=== PATIENT | male | born 1960 | race Caucasian/White ===

== ENCOUNTER 2020-11-10 15:19 | Emergency (ER) | payer BC, OTHER ==
[~2020-11-10] VITALS: Ht 177.8 cm; Wt 77.1 kg
[~2020-11-10 15:19] MED LIST: IBUPROFEN 600600 M1 PO; NOHOMEMEDICATIONS
[2020-11-10 15:59] LABS: CALCIUM 8.8 mg/dL (8.5-10.1); CREATININE 0.9 mg/dL (0.7-1.3); POTASSIUM 4.5 mmol/L (3.5-5.1)
[2020-11-10 16:05] LABS: ALBUMIN 3.7 g/dL (3.4-5.0); TOTAL BILIRUBIN 0.9 mg/dL (0.2-1.0); TOTAL PROTEIN 7.6 g/dL (6.4-8.2)
[2020-11-10 16:41] LABS: ABSOLUTE NEUTROPHILS 2.2 thou/uL (1.4-8.2); BASOPHILS 1.7 % (0.0-2.0); HEMATOCRIT 36.7 % (42.0-52.0); HEMOGLOBIN 12.5 gm/dL (14.0-18.0); LYMPHOCYTES 16.2 % (24.0-44.0); MCH 37.3 pg (26.0-34.0); MCHC 34.1 g/dL (28.0-37.0); MCV 109.3 fL (80.0-100.0); MONOCYTES 13.5 % (1.0-8.0); PLATELET COUNT 120 thou/uL (150-400); POLYS 67.6 % (36.0-66.0); RBC 3.36 mil/uL (4.50-6.00); RDW 13.3 % (10.5-14.5); WBC 3.2 thou/uL (4.0-11.0)
[2020-11-10 16:54] LABS: INR 1.1; PROTIME 11.9 Seconds (9.3-11.4)
[2020-11-10 18:20] VITALS: BP 142/80
== END 2020-11-10 18:20 | disposition home or self-care (01) ==
LOC: ER 15:19
PROVIDERS: Emergency Medicine
DX: S00.03XA Contusion of scalp, initial encounter (principal); F10.129 Alcohol abuse with intoxication, unspecified; Y90.8 Blood alcohol level of 240 mg/100 ml or more

== ENCOUNTER 2020-12-13 12:03 | Inpatient (IN) | payer BC, OTHER ==
[2020-12-13] VITALS (29 sets, daily range): BP systolic 84–139; BP diastolic 58–84
[~2020-12-13] VITALS: Ht 172.7 cm; Wt 69.9 kg
[2020-12-13 12:27] LABS: ABSOLUTE NEUTROPHILS 3.9 thou/uL (1.4-8.2); BASOPHILS 0.5 % (0.0-2.0); HEMATOCRIT 33.8 % (42.0-52.0); HEMOGLOBIN 11.8 gm/dL (14.0-18.0); LYMPHOCYTES 13.5 % (24.0-44.0); MCH 38.2 pg (26.0-34.0); MCHC 34.8 g/dL (28.0-37.0); MCV 109.8 fL (80.0-100.0); MONOCYTES 14.9 % (1.0-8.0); POLYS 70.1 % (36.0-66.0); RBC 3.08 mil/uL (4.50-6.00); RDW 12.1 % (10.5-14.5); WBC 5.5 thou/uL (4.0-11.0)
[2020-12-13 12:43] LABS: APTT 23.9 Seconds (24.5-32.8); INR 1.14; PROTIME 12.4 Seconds (9.3-11.4)
[2020-12-13 12:44] LABS: ALBUMIN 3.4 g/dL (3.4-5.0); CALCIUM 8.4 mg/dL (8.5-10.1); CREATININE 1.7 mg/dL (0.7-1.3); TOTAL BILIRUBIN 2.4 mg/dL (0.2-1.0); TOTAL PROTEIN 6.8 g/dL (6.4-8.2)
[2020-12-13 12:48] LABS: POTASSIUM 2.6 mmol/L (3.5-5.1)
[2020-12-13 14:13] LABS: PLATELET COUNT 87 thou/uL (150-400)
[2020-12-13 15:00] LABS: AMP/METHAMP Negative (Negative); BARBITURATES Negative (Negative); BENZODIAZEPINES Negative (Negative); COCAINE Negative (Negative); METHADONE Negative (Negative); OPIATES Negative (Negative); PCP Negative (Negative)
--- NOTE | 2020-12-13 15:31 | EKG ---
[address] [address] ELECTROCARDIOGRAM REPORT Name: BRY DENG Room #: 170-2 ADM IN M.R.#: [id number] Admission: 12/13/20 Attend Phys: Vinayak Wheat Discharge: Date of : 56 Report #: [id number] [facility] ED Test Date: 2020-12-13 Test Time: 12:36:22 Pat Name: BRY DENG Department: Room: 170 Gender: M Executive [employer] Consultant: luis alfredo ruiz : 1960 Requested By: Rosalinda Aguilar Order Number: [id number] MD: Karel Jackson Measurements Intervals Herman Rate: 111 P: 64 IA: 178 QRS: 54 QRSD: 80 T: 27 QT: 340 QTc: 462 Interpretive Statements Sinus tachycardia No previous ECG available for comparison Electronically Signed On 12-13-2020 15:31:34 CDT by Karel Jackson [email or web address] <ELECTRONICALLY SIGNED> By: Karel Jackson MD, [facility] 12/13/20 1531 1236 1236 Karel Jackson MD, FACC /EPI
--- NOTE | 2020-12-13 18:29 | NUR ---
PT RECEIVED TO ICU ROOM 241 VIA STRETCHER FROM ER AROUND 1730. PT MOVED TO ICU BED, FULL BATH GIVEN, PLACED ON CONTINUOUS CARDIAC AND SPO2 MONITORING W/ FREQUENT VS, AND ASSESSMENT COMPLETED. PLAN OF CARE INITIATED.
[2020-12-14] VITALS (90 sets, daily range): BP systolic 112–162; BP diastolic 70–95
[2020-12-14 01:37] LABS: MAGNESIUM 2.3 mg/dL (1.8-2.4); POTASSIUM 3.3 mmol/L (3.5-5.1)
--- NOTE | 2020-12-14 09:30 | NUR ---
chart review. noted alcohol withdrawal. cm provided out of hospital support on dc sum ie AA, [facility], [facility], pathways.
--- NOTE | 2020-12-14 11:24 | NUR ---
UPON ROUNDS, DOCTOR SANTA UPDATED THAT PT UNABLE TO TAKE PO MEDS. ANTI-SEIZURE MEDICATIONS SWITHCED TO IV. NO FURTHER CHANGES AT THIS TIME.
--- NOTE | 2020-12-14 18:23 | NUR ---
When patient awake, irritable, aggitated, restless, tremors. However, at this time he then falls back asleep and is more calm. Precedex gtt is being titrated for alcohol withdrawl.
--- NOTE | 2020-12-14 19:32 | NUR ---
Patient not progressing towards plan as evidenced by continued need for precedex and reassurance. Seizure precautions. No evidence of seizures. Plan of care is to continue to monitor patients neuro status, CIWA, assessments. Nurse informed physician of unable to take his and thiamine, no new orders. Nurse informed physician of unable to take oral anti-seizure medication, this was switched to IV. Nurse informed physician of patients hypertension, new medication to start tonight. Nurse informed physician of inability to take oral medications.
[2020-12-15] VITALS (78 sets, daily range): BP systolic 96–173; BP diastolic 59–95
[2020-12-15 05:33] LABS: CALCIUM 8.3 mg/dL (8.5-10.1); CREATININE 0.8 mg/dL (0.7-1.3); MAGNESIUM 1.6 mg/dL (1.8-2.4); POTASSIUM 3.6 mmol/L (3.5-5.1); TOTAL BILIRUBIN 2.7 mg/dL (0.2-1.0); TOTAL PROTEIN 6.5 g/dL (6.4-8.2)
--- NOTE | 2020-12-15 07:35 | NUR ---
ASSUME CARE 1900. PT/VITALS STABLE. A/O TO PERSON ONLY. ALVAREZ/COMMUNICATE NEEDS APPROPRIATELY. HOWEVER, PT IS NOT AWARE OF TIME, PLACE, AND SOMETIMES SITUATION. PER SITUATION, PT INDICATES HE HIT HIS HEAD WHILE IN THE SHOWER. PT DENIES ANY PAIN. MODERATE PROGRESS TO POC. ASSESSMENT CHARTED. PLAN IS TO MONITOR LOC/WITHDRAWALS FOR A FEW MORE DAYS AND MIGHT TRANSFER OUT TO STEP DOWN UNIT. WILL CONTINUE TO MONITOR AND FOLLOW WITH POC
--- NOTE | 2020-12-15 18:48 | NUR ---
PT PROFOUNDLY CONFUSED, REQUIRING RESTRAINTS TO PREVENT PULLING LINES/TUBES. VS REMAIN STABLE, URINE OUTPUT EXCELLENT. PT'S SON TO BEDSIDE FOR UPDATE AND DISCUSSION OF PLAN OF CARE. PT SEIZURE-FREE THIS SHIFT. PT PROGRESSING SLOWLY TOWARD GOALS.
[2020-12-16] VITALS (24 sets, daily range): BP systolic 120–167; BP diastolic 67–93
[2020-12-16 04:30] LABS: ALBUMIN 3.3 g/dL (3.4-5.0); CALCIUM 8.4 mg/dL (8.5-10.1); CREATININE 0.9 mg/dL (0.7-1.3); MAGNESIUM 1.6 mg/dL (1.8-2.4); POTASSIUM 3.5 mmol/L (3.5-5.1); TOTAL BILIRUBIN 2.1 mg/dL (0.2-1.0); TOTAL PROTEIN 6.6 g/dL (6.4-8.2)
--- NOTE | 2020-12-16 07:56 | NUR ---
ASSUMED CARE AT 1900. PT HAD MULTIPLE LOOSE STOOLS OVERNIGHT; ASKED TO USE BEDPAN ONCE, OTHERWISE INCONT. MULTIPLE PRN'S USED PER CIWA, PT AGITATED, PULLING AT RESTRAINTS, YELLING, AND NOT REDIRECTABLE. MAG AND POTASSIUM REPLACEMENT THIS AM PER PROTOCOL. NO OTHER CONCERNS, SHIFT REPORT GIVEN 0700.
--- NOTE | 2020-12-16 09:45 | NUR ---
son- Chandler present for update and to see his father. Chandler, listed as designated pt applications sales representative with phone number, voiced concern regarding post discharge care. pt resided at home prior to admission, he is aware there will need to be a change upon his father's discharge.
[2020-12-16 11:43] LABS: POTASSIUM 3.5 mmol/L (3.5-5.1)
--- NOTE | 2020-12-16 13:30 | NUR ---
SPEECH SLURRED, EYES CLOSED DURING CONVERSATION, TALKING ABOUT BEING AT HOME WITH HIS , CORRECT MONTH, DESPITE ELLY WRIST RESTRAINTS HE IS PULLING AT KEENE, HANGING HIS LEGS OUT OF THE BED. ATTTEMPTING TO REORIENT.
[2020-12-17] VITALS (18 sets, daily range): BP systolic 120–167; BP diastolic 64–93
[2020-12-17 03:37] LABS: ALBUMIN 2.8 g/dL (3.4-5.0); CALCIUM 8.2 mg/dL (8.5-10.1); CREATININE 0.8 mg/dL (0.7-1.3); MAGNESIUM 1.8 mg/dL (1.8-2.4); POTASSIUM 3.7 mmol/L (3.5-5.1); TOTAL BILIRUBIN 1.4 mg/dL (0.2-1.0); TOTAL PROTEIN 6.2 g/dL (6.4-8.2)
--- NOTE | 2020-12-17 16:01 | NUR ---
INITIAL ASSESSMENT: AUSTIN reviewed chart and spoke with attending physician. Pt was admitted after having [facility]. Pt brought to [facility] ER. Pt currently in ICU with orders to transfer out. Pt is in bilateral wrist restraints due to pulling at lines. AUSTIN spoke with pt's son, Chandler, via phone. Introduced role of SW. Pt with long hx of ETOH abuse. Pt currently lives alone. Pt is legally from his . Pt has had stays at [facility], [facility] and other in facilities. Pt has also utilized AA. Per pt's son, pt has experienced injuries over the past several years related to falls caused by ETOH intoxication. Pt was at [facility] for a brain bleed due to a fall. Pt does have insurance through his . Pt does not have a PCP or follow up care. Pt has been to several hospitals over the years and has not been able to stop drinking. Pt is not currently employed. Per Chandler, pt does not have the funds to continue living on his own, and is also physically unable to live on his own. AUSTIN discussed discharge planning: SNF and then possible LTC placement. Pt's son is agreeable with placement upon discharge. AUSTIN discussed Medicaid application, as pt would not be able to pay privately. Pt's son is agreeable with referral to [facility]. AUSTIN contacted [facility] to follow up with pt's son. Pt does not have a DPOA. Pt's son and dtr, Diane, are supportive and involved in pt's care. Contact info for AUSTIN provided. AUSTIN is following to assist as needed with discharge planning.
--- NOTE | 2020-12-17 17:00 | NUR ---
called to give report at 1640. RAMONA Murguia third floor stated she will call back. call returned at [phone], report given. pt's son briefly present, updated on status. son talking with his father, providing support.
--- NOTE | 2020-12-17 17:20 | NUR ---
son aware of transfer. prior to transfer ciwa-9. ativan po, scheduled librium administered. pt transferred on floor bed to room 363.
--- NOTE | 2020-12-17 20:08 | NUR ---
PT TRANSFERED FROM ICU ABOUT 1800PM, PT IS CONFUSED AND IMPULSIVE, PT IS ON BOTH WRIST RESTRANITS, PT IS ON ROOM AIR, PT'S VS ARE STABLE, RN HAS REPORTED TO NEXT SHIFT TO KEEP EYE ON PT.
--- NOTE | 2020-12-17 22:29 | NUR ---
PT ALERT AND ORIENTED X1. REORIENTING PT TO DATE TIME PLACE SITUATION FREQUENTLY. HE IS MILDLY AGITATED ATTEMPTS TO GET OOB. RESTRAINTS ARE ON. PT REPOSITIONED Q 2 HOURS OR MORE. ZGARD APPLIED TO BUTTOCKS. RECTAL TUBE INTACT DRAINING LIGHT BROWN LIQUID STOOL. KEENE DRAINING CLEAR YELLOW URINE. ATIVAN GIVEN X2 SO FAR FOR CIWA 11.
[2020-12-18 00:40] VITALS: BP 135/79
[2020-12-18 03:46] VITALS: BP 136/82
[2020-12-18 07:50] VITALS: BP 173/96
--- NOTE | 2020-12-18 07:55 | NUR ---
PT REMAINS CONFUSED IN RESTRAINTS. HE ATTEMPTS TO GET OOB AND PULLS AT TUBES. SLIGHT ARM TREMORS NOTED. VSS LOW GRADE TEMPS OVERNIGHT. UNLABORED ON RA. HR 88-130'S. ATIVAN AND HALDOL GIVEN PRN. HR DECREASED IN RESPONSE TO 110'S. LOWERED ROOM TEMP. PT IS RESTING BETTER. MAG REPLACED X1. DAY SHIFT NOTIFIED OF THIS AM MG 1.7 . SHE STATED SHE WILL REPLACE ORDERED AND F/U WITH REDRAW.
--- NOTE | 2020-12-18 16:13 | NUR ---
SW reviewed chart and spoke with nursing and attending physician. Pt was transferred to from ICU. Pt remains in restraints due to agitation and pulling at lines. Psych is following. SW met with pt at bedside. Pt able to state his name and . Pt unsure which hospital he is in. SW spoke with pt's dtr, Diane, via phone regarding hx and discharge plan. Pt and are legally . Pt's will keep pt on her insurance. SW explained process of applying for Medicaid. Pt's dtr verbalized understanding. Pt's dtr states that pt has a long hx of drinking beer, wine and hard liquor. SW discussed discharge disposition: SNF/LTC or inpt psych ([facility] unit). Pt's dtr states that family would prefer pt be admitted to SB if he qualifies. Pt's dtr states that pt may have underlying mental health dx that has not been addressed due to his ETOH abuse. PT/OT/ST to be ordered when pt is out of restraints and able to participate. SW is following to assist as needed with discharge planning.
[2020-12-18 19:49] VITALS: BP 157/77
[2020-12-19 04:13] VITALS: BP 130/69
--- NOTE | 2020-12-19 04:25 | NUR ---
CALM AND RESTING TONIGHT AFTER ATIVAN AT THE BEGINING OF THE SHIFT. HE DOES CONITNUE TO HAVE SOME HALLUCINATIONS. NO CONCERNS VOICED. HE WAS ABLE TO ANSWER THREE OF THE ORIENTATION QUESTIONS./
[2020-12-19 07:35] VITALS: BP 130/69
[2020-12-19 10:20] LABS: HEMATOCRIT 37.1 % (42.0-52.0); HEMOGLOBIN 13.1 gm/dL (14.0-18.0); MCHC 35.2 g/dL (28.0-37.0); MCV 110.9 fL (80.0-100.0); RBC 3.35 mil/uL (4.50-6.00); RDW 12.3 % (10.5-14.5); WBC 5.1 thou/uL (4.0-11.0)
[2020-12-19 15:34] VITALS: BP 125/69
--- NOTE | 2020-12-19 15:57 | NUR ---
SW reviewed chart and spoke with nursing and attending physician. Restraints were removed this morning. ST evaluated pt. Recommendation made for pt to be on a mechanical soft diet and nectar thickened liquids. PT/OT ordered to evaluate pt for discharge needs. Psych is following. AUSTIN spoke with pt's dtr, Diane, via phone to provide update. Diane requests to speak with psych regarding pt's plan of care and recommendation for discharge needs. SW provided contact info to psych. SW is following to assist as needed with discharge planning.
[2020-12-19 19:16] VITALS: BP 125/62
--- NOTE | 2020-12-19 23:10 | NUR ---
PT RESTING IN BED. MUMBLING TO SELF, TOLD THE NURSE HE WAS FEEDING THE DOGS AND THAT SHE WAS A GOOD KID. PT HAS FECAL TUBE AND KEENE INTACT. PT ATE DINNER LATE FED HIMSELF. EYES CLOSED WHEN PT IS TALKING TO STAFF. STERI STRIPS OVER L EYE INTACT. BED ALARM ON.
[2020-12-20 03:14] VITALS: BP 125/79
[2020-12-20 08:01] VITALS: BP 137/69
[2020-12-20 15:22] VITALS: BP 125/64
--- NOTE | 2020-12-20 15:55 | NUR ---
ASSUMED PT CARE AT SHIFT CHANGE, PT VERY GROGGY/SLEEPY. NO CIWA MEDS ADMINISTERED ON MISSION WORKER. PT MAKES NO ATTEMPT TO FEED SELF, BUT IS ACCEPTING OF HELP WHEN BITES OFFERED. PT CONTINUES CONFUSION, ALERT TO SELF. IN AND OUT OF ALERTNESS TO SITUATION.
--- NOTE | 2020-12-20 19:22 | NUR ---
PT LAST CIWA SCORE OF 10, PT REQUESTED LOWER DOSE OF ATIVAN. THIS RN ADMINISTERED. RECTAL TUBE AND KEENE DC'D. PT TOLERATED WELL. PT STATES HE IS READY TO WORK MORE WITH PT/OT IN EFFORTS TO "SOBER UP"
[2020-12-20 19:34] VITALS: BP 130/75
[2020-12-21 05:20] VITALS: BP 116/60
--- NOTE | 2020-12-21 07:30 | NUR ---
CIWA of 8 initially then 12 . Pt. stated he's seeing bugs and spiders, prn lorazepam given. He has been cooperative and has slept well most of the night. Incontinent of bm. Offered urinal but didn't have to go. Scanned bladder last night with only 45 ml in bladder then scanned again this am with only 135 ml. Seizure precaution initiated. Bed alarm on for safety.
[2020-12-21 07:38] VITALS: BP 116/70
--- NOTE | 2020-12-21 11:51 | NUR ---
AUSTIN reviewed chart and spoke with nursing and attending physician. Pt is progressing towards goals for discharge. Pt continues to have hallucinations. Pt has been out of restraints and is able to work with therapy. Recommendation made for SNF placement. Pt does not meet admission criteria for 5N. AUSTIN spoke with pt's dtr, Diane, via phone to discuss discharge plan. In-network SNF list sent to family via email for review. Diane states they are interested in [facility] or [facility]. AUSTIN contacted both facilities. [facility] is not in-network with pt's insurance. [facility] does not have a locked unit. Pt will likely need a locked unit. AUSTIN discussed alternate options. Request for referral to be sent to [facility] for review. Pt's dtr with questions about the quality of care at the facility. AUSTIN encouraged pt's dtr to review survey results on Medicare.gov. Pt's dtr verbalized understanding. AUSTIN faxed SNF referral and notified [facility] post-acute liaison. Will need insurance auth for SNF. AUSTIN also sent email to [employer] to follow up with pt's family regarding Medicaid application as secondary insurance. AUSTIN is following to assist as needed with discharge planning.
[2020-12-21 15:34] VITALS: BP 111/75
--- NOTE | 2020-12-21 18:25 | NUR ---
ASSUMED PT CARE AT SHIFT CHANGE, PT ALERT AND ABLE TO HAVE COMPREHENDABLE CONVERSATION. PT MADE STATEMENTS EARLY IN DAY THAT HE WAS "READY TO GET RIGHT" AND "WANTS TO WORK HARD AND GET BETTER". PT LATER IN DAY THEN MADE STATEMENTS OF "READY TO BE OUT OF HERE" AND "I DON'T NEED OUTPATIENT THERAPY" PER FAMILY, PT HAS CYCLICAL PATTERN OF LEAVING HOSPITAL AMA POST DETOX. PT ABLE TO TAKE FREQUENT NAPS DURING THE DAY. PT WAS VERY FATIGUED AFTER WORKING WITH PHYSICAL THERAPY. PT ABLE TO FEED SELF AND USE URINAL WHEN AWAKE.
[2020-12-21 19:43] VITALS: BP 137/88
[2020-12-22 03:58] VITALS: BP 134/85
--- NOTE | 2020-12-22 06:18 | NUR ---
PROGRESS PT ALERT AND ORIENTED TO PLACE SELF STAFF TO SOME EXTENT. GETS CONFUSED ON WHERE HE IS AND REMAINS IMPULSIVE, ONLY 1 ATTEMPT TO GET OOB. SLEPT MOST OF NIGHT VSS, TELE INTACT CONTINUE POC.
[2020-12-22 07:40] VITALS: BP 145/84
--- NOTE | 2020-12-22 12:45 | NUR ---
care assumed this am, pt alert and oriented x3, forgetful, confuse and impulsive. reinforced fall precautions. ciwa assessment completed. Seizure precautions in place. will continue to monitor
[2020-12-22 16:18] VITALS: BP 125/67
[2020-12-22 17:39] LABS: URINE BILIRUBIN 1+ (Negative); URINE BLOOD NEGATIVE (Negative); URINE CLARITY CLEAR; URINE GLUCOSE-RANDOM* NEGATIVE (Negative); URINE KETONES TRACE (Negative); URINE LEUKOCYTES NEGATIVE (Negative); URINE NITRITE NEGATIVE (Negative); URINE PROTEIN (DIPSTICK) TRACE (Negative); URINE SPECIFIC GRAVITY >= 1.030 (1.005-1.035)
[2020-12-22 17:42] LABS: URINE COLOR AMBER
[2020-12-22 17:44] LABS: ICTOTEST (BILI CONFIRMATORY) Positive (Negative)
[2020-12-22 19:30] VITALS: BP 121/72
[2020-12-23 04:54] VITALS: BP 130/86
[2020-12-23 07:38] VITALS: BP 120/69
--- NOTE | 2020-12-23 07:41 | NUR ---
PROGRESS PT IMPULSIVE BUT TIRED THIS SHIFT NIGHT MEDS GIVEN AND PT SLEPT REMAINDER OF SHIFT. PULLED IV OUT AND UNABLE TO GET ONE STARTED, 2 RN'S ATTEMPTED WITHOUT SUCCESS IV TEAM TO REQUESTED TODAY. CONTINUE FALL PRECAUTIONS.
--- NOTE | 2020-12-23 08:33 | NUR ---
CARE ASSUMNED IN THI AM, NEW IV PLACED ON LEF FOREAM. P ALERT AND ORIENTED X3. FORGEFUL AT TIMES. CONTINUE O HAVE TREMORS AND AGITATION, RUBY BLANDON PE ORDER. ON ROOM AIR, NO SIGNS OF DISTRESS NOTED. FALL PRECAUIONS IN PLACE. SEIZURE PRECAUION WELL. WILL CONTINUE TO MONITOR.
[2020-12-23 15:41] VITALS: BP 98/63
[2020-12-23 19:34] VITALS: BP 124/78
[2020-12-24 04:28] VITALS: BP 149/93
--- NOTE | 2020-12-24 04:58 | NUR ---
HALLUCINATINGTHIS AM. HE SEE HIS BROTHER IN THE CHAIR NEXT TO HIS BED. HAD HAD BM ALL OVER, HE DOES NOT HAVE ANY IDEA TO CALL FOR HELP. HIS BLADDER WAS FULL THIS AM AND STRIGHT CATHETER URINARY ALLOWED 380 OF VERY DARK GILDARDO URINE OUT OF BLADDER. HE FEELS MORE CALM AFTER TAKING THE ATIVAN AN URINATING. IV FLUIDS CONT. TO INFUSE.
[2020-12-24 07:19] VITALS: BP 159/96
[2020-12-24 08:30] VITALS: BP 125/68
[2020-12-24] MEDS ORDERED: CLONIDINE HCL0.3 M3 PO (12:02)
[2020-12-24] MEDS ORDERED: LACTULOSE20 GM/30 M PO (12:02)
[2020-12-24] MEDS ORDERED: VITAMIN B-1100 M2 PO (12:02)
[2020-12-24] MEDS ORDERED: METOPROLOL TART25 MG PO (12:02)
[2020-12-24] MEDS ORDERED: SEROQUEL 25 MG25 MG PO (12:04)
--- NOTE | 2020-12-24 13:48 | NUR ---
AUSTIN reviewed chart and spoke with nursing and attending physician. Pt is progressing towards goals for discharge. Pt remains on ETOH withdrawal protocol. AUSTIN faxed clinical and ST updates to [facility] for review. Awaiting updated PT/OT notes. Will need insurance auth for SNF. AUSTIN spoke with pt's dtr, Diane, via phone to provide update. Pt's family is agreeable with plan for pt to d/c to [facility] pending insurance auth. Medicaid application has been filed by [employer]. AUSTIN is following to assist as needed with discharge planning.
--- NOTE | 2020-12-24 16:15 | NUR ---
RN ASSUMED P'S AT 0700AM, PT KNOWS HIS NAME AND DAY, BUT PT IS CONFUSD, PT IS ON ROOM AIR, PT 'S VS ARE STABLE AT THIS TIME, PT'S HAS MDICATION FOR AGITAION , PT HAS MEDICATION FO AGITAION,PT IS HIGH FALL RISK.
[2020-12-24] MEDS ORDERED: ATIVAN1 M1 PO (16:33)
[2020-12-24 16:36] VITALS: BP 125/68
[2020-12-24 21:37] VITALS: BP 140/79
[2020-12-25 04:11] VITALS: BP 118/59
--- NOTE | 2020-12-25 06:01 | NUR ---
VSS OVERNIGHT, PT IS CONFUSED AND MAKES RANDOM COMMENTS LIKE HE IS GOING TO SHAVE, OR HE IS GOING TO KITCHEN TO EAT. REDIRECT AND REFOCUS PT. PT IS VERY IMPULSIVE, BED ALARM IS A MUST. FALL PRECAUTIONS IN PLACE. PT SHOULD DC TO 5N TODAY.
[2020-12-25 07:35] VITALS: BP 143/83
--- NOTE | 2020-12-25 14:55 | NUR ---
AUSTIN reviewed chart and spoke with nursing and attending physician. Pt is progressing towards goals for discharge. Psych discussed case with SB. Recommendation for SNF at this time due to needing assistance with ADLs. AUSTIN faxed ST note and med list from today. Awaiting PT/OT notes at this time to send to [facility] for review. AUSTIN updated [facility] post-acute liaison. Pt is off ETOH withdrawal protocol. Once PT/OT notes are received the facility will submit for insurance authorization. Pt will not need a repeat COVID test prior to discharge. AUSTIN left voice message for pt's dtr, Diane, to provide update. AUSTIN is following to assist as needed with discharge planning.
[2020-12-25 17:50] VITALS: BP 130/70
[2020-12-25 19:37] VITALS: BP 153/76
[2020-12-26 04:36] VITALS: BP 134/84
--- NOTE | 2020-12-26 06:48 | NUR ---
PT STILL CONFUSED AND IMPULSIVE. MULTIPLE BED CHANGES DUE TO URINE AND FECAL INCONTINENCE. HOURLY ROUNDING AND BED ALARM IS A MUST.
[2020-12-26 08:15] VITALS: BP 120/56
--- NOTE | 2020-12-26 14:23 | NUR ---
john s/w taylor w/ryan of . she will arrange w/c transportation for around 1600. pt and son, karel, and dtr, maricruz, have been notified and are agreeable to plan. maricruz asked if pt would be on a behavioral health unit, and john explained pt would be on "rehab unit" per taylor with ryan. us made chart copied. rn given unit name and number to call report. [phone]. joel d/c environmental emergencies planner to faxed orders to [facility].
[2020-12-26] MEDS ORDERED: SEROQUEL 25 MG25 MG PO ×2 (15:07→16:18)
[2020-12-26 15:25] VITALS: BP 128/70
[2020-12-26] MEDS ORDERED: CLONIDINE HCL0.3 M3 PO (16:18)
--- NOTE | 2020-12-26 19:33 | NUR ---
RN ASSUMED PT'S CARE AT 0700AM, PT IS A&OX2 ( PERSON AND PLACE ), PT IS CONFUSED AT TIME, PT CAN FOLLOW MOST OF COMMANDS, PT'S VS ARE STABLE, PT DID NOT HAVE SOB AND RAMONA DUMONT RECEIVED DR OR TO DC PT TO SNF AT 1640PM, RN HAD GIVING SNF REPORTED .
== END 2020-12-26 17:07 | DRG 113 ==
LOC: ER 12:03 → EROBS 15:26 → ICU 15:26 → 3W 15:26 → ICU 17:03 → 3W 12-17 17:44
PROVIDERS: Hospitalist; Nurse Practitioner Family; ADMIT Hospitalist; ATTEND Hospitalist
PROC: 08Q1XZZ Repair Left Eye, External Approach (ICD-10-PCS; principal; 2020-12-13)
DX: S05.32XA Ocular laceration without prolapse or loss of intraocular tissue, left eye, initial encounter (principal); F10.131 Alcohol abuse with withdrawal delirium; N17.9 Acute kidney failure, unspecified; E87.1 Hypo-osmolality and hyponatremia; K72.90 Hepatic failure, unspecified without coma; E87.6 Hypokalemia; D69.6 Thrombocytopenia, unspecified; Z87.891 Personal history of nicotine dependence; Z60.2 Problems related to living alone; I10 Essential (primary) hypertension; K76.0 Fatty (change of) liver, not elsewhere classified; R53.81 Other malaise; F39 Unspecified mood [affective] disorder; Z20.822 Contact with and (suspected) exposure to COVID-19; W18.39XA Other fall on same level, initial encounter; Y93.89 Activity, other specified; Y92.89 Other specified places as the place of occurrence of the external cause; Y99.8 Other external cause status
CPT/HCPCS: 10078; 10879; 50455